=== PATIENT | female | born 2000 | race American Indian/Alaskan Native ===

== ENCOUNTER 2020-01-25 16:04 | Emergency (ER) | payer SELFPAY ==
[2020-01-25 16:27] VITALS: BP 105/62
[2020-01-25] MEDS ORDERED: NEOMY 3.5 MG/BACIT 400 UNITS/POLY B 5000 UNITS/GM OINT PACKET TP ONE (17:17)
[2020-01-25] MEDS ORDERED: DIPHtheria,PERTUSSIS(ACELL),TETANUS VACCINE/PF 0.5 ML VIAL IM ONE (17:17)
[2020-01-25] MEDS ORDERED: ACETAMINOPHEN 500 MG TAB PO ONE (17:17)
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
== END 2020-01-25 19:19 ==
LOC: ED 16:04
DX: S40.212A Abrasion of left shoulder, initial encounter (principal); J45.909 Unspecified asthma, uncomplicated; V89.2XXA Person injured in unspecified motor-vehicle accident, traffic, initial encounter; Y93.89 Activity, other specified; Y92.410 Unspecified street and highway as the place of occurrence of the external cause; Y99.8 Other external cause status
CPT/HCPCS: 73030; 90471; 90715; 99283; A6250